=== PATIENT | female | born 1955 | race Two or more races ===

== ENCOUNTER 2018-08-17 01:07 | Emergency (ER) | payer MEDICAID, OTHER ==
[~2018-08-17] VITALS: Ht 167.6 cm; Wt 68.0 kg
[2018-08-17 02:02] VITALS: BP 148/78
[2018-08-17] MEDS ORDERED: IBUPROFEN 600 MG TAB PO ONE (02:45)
[2018-08-17] MEDS ORDERED: ACETAMINOPHEN/CODEINE#3 (300/30mg) TAB PO ONE (02:45)
== END 2018-08-17 03:13 | disposition home or self-care (01) ==
LOC: ER 01:07
DX: S86.911A Strain of unspecified muscle(s) and tendon(s) at lower leg level, right leg, initial encounter (principal); X50.9XXA Other and unspecified overexertion or strenuous movements or postures, initial encounter; Y93.89 Activity, other specified; Y99.8 Other external cause status; Y92.89 Other specified places as the place of occurrence of the external cause
CPT/HCPCS: 29505; 73562